=== PATIENT | female | born 1965 | race Caucasian/White ===

== ENCOUNTER 2016-10-01 15:40 | Inpatient (IN) ==
[2016-10-01] MEDS ORDERED: ONDANSETRON 4 MG/2 ML VIAL IV STA (15:45)
[2016-10-01] MEDS ORDERED: HYDROmorphone 2 MG/1 ML VIAL IV STA ×2 (15:45→18:09)
[2016-10-01] MEDS ORDERED: SODIUM CHLORIDE 0.9% 1,000 ML IV STA (15:45)
--- NOTE | 2016-10-01 16:13 | Emergency Department Note ---
Stephanie Pimentel Gwan, am scribing for, and in the presence of, Salvador Grijalva MD 15:58 . Valentine Pimentel James D, MD, personally performed the services described in this documentation, ascribed by Vladimir Brown in my presence, and it is both accurate and complete 612 . Arrival - Arrival Chief Complaint: Abdominal / Flank Pain ED Nursing Triage Note: ABD PAIN ONSET AROUND 2 LAST NIGHT, TENDER OVER RLQ Mode of Arrival: Ambulatory Limitations: No Limitations Source: Patient, Old Records Reviewed, RN Notes Reviewed Time Seen by Provider: 10/01/16 15:45 - History of Present Illness HPI Narrative: Patient is a 51 y/o white female who presents to the ED with a c/o RLQ pain with an onset 0200 this morning. Patient stated that she cooked some shrimp 3 days ago and that she ate them last night. She continued to note that she was awaken this morning at 0200 with nausea and diarrhea. Patient then said that her pain has worsened prompting her visit to the ED for further evaluation. She denies any dysuria or fever. Onset (ago): day(s) Consistency: constant Severity: moderate Allergies/Adverse Reactions: Allergies Allergy/AdvReac Type Severity Reaction Status Date / Time No Known Allergies Allergy Unverified 10/01/16 15:48 Home Medications: Home Medications Medication Instructions Recorded Confirmed Type Eszopiclone [Lunesta] 3 mg PO BEDTIME 10/01/16 10/01/16 History Magnesium 250 mg PO DAILY 10/01/16 10/01/16 History Multivitamin (Centrum) [Centrum 1 tablet PO DAILY 10/01/16 10/01/16 History Tab] [place]-3 Fatty Acids [Fish Oil] 300 mg PO TID 10/01/16 10/01/16 History Ubidecarenone [Co Q-10] 50 mg PO DAILY 10/01/16 10/01/16 History Zolpidem [Ambien] 5 mg PO BEDTIME 10/01/16 10/01/16 History buPROPion XL [Wellbutrin Xl] 300 mg PO DAILY 10/01/16 10/01/16 History HYDROcodone/ACETAMIN 7.5-325 1 tablet PO Q4H PRN #30 tablet 10/02/16 Rx [[place] 7.5-325] Review of System - Review of System 12 point system: reviewed and no additional remarkable complaints except as stated - Review of System Constitutional: Absent: chills, diaphoresis, fever Eyes: Absent: pain Head/Ears/Nose/Throat: Absent: earache Respiratory: Absent: cough, wheezing Cardiovascular: Absent: chest pain Gastrointestinal: Present: as per HPI, abdominal pain, nausea, diarrhea. Absent : vomiting Genitourinary female: Absent: dysuria Musculoskeletal: Absent: arm pain, back pain, leg pain, neck pain Skin: Absent: rash Neurological: Absent: headache, weakness Medical,Surgical,& Family Hx - Medical History Psychological: History of: Anxiety Disorders Exam Physical Examination: GENERAL: This is a white female in no apparent distress. VITAL SIGNS: HEENT: Head is normocephalic and atraumatic. Pupils are equally round and reactive to light. Extraocular movement are intact. Oropharynx is benign with moist mucous membranes. NECK: Neck is soft and supple without tenderness. There are no masses. There is no lymphadenopathy. LUNGS: Lungs are clear to auscultation bilaterally. Chest rises symmetrically. There is no chest wall tenderness. CV: Heart is regular rate and rhythm without murmurs, rubs, or gallops. ABDOMEN: Abdomen is soft, tender to palpation the right lower quadrant with minimal guarding. There are no abnormal masses palpated. There is no organomegaly. Bowel sounds are present and active. Heel tap positive, psoas sign positive. SKIN: Skin is warm and dry. No rash. EXTREMITIES: Patient has full range of motion without tenderness. There is no pedal edema. NEUROLOGIC: Awake, alert, and oriented x4. Cranial nerves II through XII are grossly intact. There are no motorsensory deficits. PSYCHIATRIC: Normal affect. Normal mood. Vital Signs: Vital Signs Temperature 98.1 F 10/02/16 11:40 Pulse Rate 69 10/02/16 11:40 Respiratory Rate 16 10/02/16 11:40 Blood Pressure 120/74 10/02/16 11:40 O2 Sat by Pulse Oximetry 99 10/02/16 11:40 Course - Consultations Consultation #1: Discussed with Dr. Mccracken. Patient will be admitted to his service. Time: 16:51 Results - Labs CBC & BMP: 10/01/16 15:45 10/01/16 16:05 Lab Results: I have reviewed the patients labs Labs: Laboratory Tests 10/01/16 15:45 WBC 12.9 H RBC 3.73 L Hgb 13.1 Hct 37.7 MCH 35 H Plt Count 329 Neut % (Auto) 77.6 H Lymph % (Auto) 9.5 L Neut # (Auto) 10.0 H Lymph # (Auto) 1.2 L Tyrrell # (Auto) 1.3 H - Diagnostic Findings Procedure: Abdominal x-ray: image reviewed by me (Nonspecific gas pattern, no free air, gas in the rectum.), CT Abdomen and Pelvis: image reviewed by me ( Distended appendix with appendicolith consistent with acute appendicitis.) Disposition Clinical Impression: Right lower quadrant abdominal pain, Acute appendicitis Case discussed with: patient Disposition: Still a Patient Condition: Stable New Prescriptions: Rx's Medication Instructions Recorded HYDROcodone/ACETAMIN 7.5-325 1 tablet PO Q4H PRN #30 tablet 10/02/16 [[place] 7.5-325]
[2016-10-01 16:20] LABS: Basophils % 0.3 % (0.0-0.8); Eosinophils # 0.3 10*3/uL (0.0-0.87); Eosinophils % 2.1 % (0.00-10.9); Hematocrit 37.7 VOL% (35.7-47.0); Hemoglobin 13.1 GM/DL (12.0-16.0); Immature Granulocytes % 0.2 %; Immature Granulocytes Absolute 0.03 #; Lymphocytes # 1.2 10*3/uL (1.4-4.0); Lymphocytes % 9.5 % (21.3-54.2); Mean Corpuscular HGB Conc 34.7 GM/DL (32-36); Mean Corpuscular Hemoglobin 35 PG (27-34); Mean Corpuscular Volume 101.1 FL (87-102); Mean Platelet Volume 9.7 FL (9.6-12.0); Monocytes # 1.3 10*3/uL (0.11-0.8); Monocytes % 10.3 % (1.7-12.7); Neutrophils % 77.6 % (38.7-73.9); Platelet Count 329 T/CUMM (130-400); Red Blood Count 3.73 MC/CUMM (3.8-5.5); Red Cell Distribution Width 12.1 % (9.3-17.3); White Blood Count 12.9 T/CUMM (4-12)
[2016-10-01] MEDS ORDERED: ONDANSETRON 4 MG/2 ML VIAL ONE ×2 (16:28→20:00)
[2016-10-01] MEDS ORDERED: HYDROmorphone 2 MG/1 ML VIAL ONE (16:28)
[2016-10-01 16:52] LABS: Alanine Aminotransferase 37 U/L (13-56); Albumin 3.7 G/DL (3.4-5.0); Alkaline Phosphatase 57 U/L (45-117); Aspartate Amino Transferase 24 U/L (0-37); Bilirubin,Total < 0.39 MG/DL (0.2-1.0); Blood Urea Nitrogen 11 MG/DL (7-18); Calcium 8.4 MG/DL (8.5-10.1); Glucose 103 MG/DL (74-106); Osmolality,Calculated 279.3 MOS/KG (273-304); Potassium 3.8 MMOL/L (3.5-5.1); Sodium 141 MMOL/L (136-145)
--- NOTE | 2016-10-01 16:53 | CT Report ---
Exam: CT abdomen pelvis w con Date: 10/01/2016 3:46 PM Comparison: None Indication: Abdominal pelvic pain Total DLP: 335.0 mGy*cm Technical: No oral contrast administered. Images were obtained from the lung bases to the iliac crest continuation through the pelvis with 100 cc of Omnipaque 350 with axial sagittal coronal imaging available for review. Dose reduction was performed with decreasing kv and mA and automated exposure Findings: Lung bases: No obvious infiltrates or effusions present. Liver and Spleen: Liver hepatic and portal veins unremarkable for acute findings. The spleen is normal in size. Gallbladder and Pancreas: Unremarkable Adrenals: Unremarkable Kidneys: Both kidneys are equally perfused and demonstrate no evidence for obstructive uropathy. The ureters are demonstrated to the bladder bilaterally without obstruction Stomach: Incomplete distended with air fluid and debris Retroperitoneum: No enlarged lymph nodes. Aorta and IVC: No obvious aneurysm aorta vessels and IVC are unremarkable. Bowel and Mesentery: Some fluid-filled loops of small bowel are present. No obvious evidence of pneumoperitoneum clearly demonstrated. Some small calcifications are present in the right lower quadrant . Question appendicolith. Dilated distended appendix also present with at least 2 calcifications suspected in the appendix. Pelvis: Bladder: Incompletely distended with fluid on the delayed images. Fluid: No free fluid identified. Lymph nodes: No enlarged lymph nodes. Pelvic organs: Mildly prominent the uterus that suggest possibly some degenerative leiomyoma changes present. Osseous structures: Degenerative changes thoracolumbar spine. Impression: 1. Calcification right lower quadrant appendicolith cannot be excluded. The appendix appears to measure up to approximate 7.4 mm on the coronal imaging measures 9.2 cm on the axial image and suggest probably a component of appendicitis with calcifications proximally and distally in the appendix. No obvious defined abscess pneumoperitoneum present. 2. Dilated reactive small bowel present. 3. Mildly enlarged uterus with some degenerative leiomyoma changes. Critical test report called to Dr. Tyrell Grijalva. PROCEDURE INTERPRETED AT [facility] DEPARTMENT OF RADIOLOGY Final Report Signed by: Dr. Waylon Shah
--- NOTE | 2016-10-01 16:56 | XRay Report ---
Exam: XR abdomen complete w decub Date: 10/01/2016 3:53 PM Indication: Right lower quadrant pain Comparison: CT scan 10/01/2016 Technical: Supine and erect imaging 3 views. The exam reveals performed post CT imaging. Findings: The lung bases unremarkable. The liver shadow and spleen shadow and renal shadows are unremarkable. Nonspecific GI pattern is present with some dilated loops of bowel present. No obvious pneumoperitoneum. The ureters are demonstrated to the bladder. Faint calcifications right lower quadrant. Impression: 1. Mild reactive bowel present. 2. CT scan suggested appendicoliths and acute appendicitis PROCEDURE INTERPRETED AT [facility] DEPARTMENT OF RADIOLOGY Final Report Signed by: Dr. Waylon Shah
[2016-10-01] MEDS ORDERED: AMPICILLIN/SULBACTAM 3,000 MG VIAL ONE (18:14)
[2016-10-01] MEDS ORDERED: diphenhydrAMINE 50 MG/1 ML VIAL ONE (18:47)
[2016-10-01] MEDS ORDERED: diphenhydrAMINE 50 MG/1 ML VIAL IV STA (18:58)
[2016-10-01] MEDS: AMPICILLIN/SULBACTAM 3,000 MG in SODIUM CHLORIDE 0.9% 100 ML IV SCH (19:00)
--- NOTE | 2016-10-01 19:14 | General Surg History&Physical ---
Assessment and Plan (1) Right lower quadrant abdominal pain Status: Acute Assessment and plan: Impression: Acute appendicitis Plan: I have reviewed the CT report and images. History laboratory work exam and CT scan all consistent with acute appendicitis. Discussed options with the patient and she would like to proceed with laparoscopic appendectomy as soon as possible. We discussed the risks of the procedure including bleeding, infection , damage to surrounding structures, need for further surgery, leaking at the staple line, scar formation, conversion to an open procedure in detail. She would like to proceed tonight. Current Visit: Yes History of Present Illness Chief complaint: Abdominal pain History of present illness: Ms. Cisneros is a 51 year old female presents to the emergency room with abdominal pain that began at 2 AM this morning. It of progressively worsened throughout the day. Initially started in the suprapubic region and has migrated to the right lower quadrant. She has had diarrhea and nausea. She denies fever. She has no chest pain shortness of breath, heart or lung problems. She denies any medical problems other than a previously diagnosed ovarian cyst when she was . Home Medications Medication Instructions Recorded Confirmed Type Eszopiclone [Lunesta] 3 mg PO BEDTIME 10/01/16 10/01/16 History Magnesium 250 mg PO DAILY 10/01/16 10/01/16 History Multivitamin (Centrum) [Centrum 1 tablet PO DAILY 10/01/16 10/01/16 History Tab] [place]-3 Fatty Acids [Fish Oil] 300 mg PO TID 10/01/16 10/01/16 History Ubidecarenone [Co Q-10] 50 mg PO DAILY 10/01/16 10/01/16 History Zolpidem [Ambien] 5 mg PO BEDTIME 10/01/16 10/01/16 History buPROPion XL [Wellbutrin Xl] 300 mg PO DAILY 10/01/16 10/01/16 History Allergies Allergy/AdvReac Type Severity Reaction Status Date / Time No Known Allergies Allergy Unverified 10/01/16 15:48 Medical,Surgical,& Family Hx - Medical History Medical History: noncontributory Psychological: History of: Anxiety Disorders Exam - Constitutional Vitals: Period Temp Pulse Resp BP Sys/Love Pulse Ox Last 24 Hr 98.3 F-98.3 F 84-84 18-18 127-127/87-87 100 General appearance: no acute distress - Head Head exam: Present: normocephalic - Neck Neck exam: Present: normal inspection - Respiratory Respiratory exam: Present: clear to auscultation bilaterally - Cardiovascular Cardiovascular exam: Present: RRR - GI/Abdominal GI/Abdominal exam: Present: soft (Tender to palpation in the right lower quadrant with localized rebound. Positive psoas sign.) - Extremities Exam Extremities exam: Present: normal inspection - Back Exam Back exam: Present: normal inspection - Neurological Exam Neurological exam: Present: alert, oriented X3 Speech: Present: normal - Skin Skin exam: Present: normal color 12 point system: reviewed and no additional remarkable complaints except as stated Results - Labs CBC & BMP: 10/01/16 15:45 10/01/16 16:05 Lab Results: I have reviewed the past 24 hour labs
[2016-10-01] MEDS ORDERED: BUPIVACAINE MPF 0.25% /EPI 30 ML VIAL ONE (19:45)
[2016-10-01] MEDS ORDERED: NEOSTIGMINE 10 MG/10 ML VIAL ONE (20:00)
[2016-10-01] MEDS ORDERED: ROCURONIUM 100 MG/10 ML VIAL IV ONE (20:00)
[2016-10-01] MEDS ORDERED: KETOROLAC 30 MG/1 ML VIAL ONE (20:00)
[2016-10-01] MEDS ORDERED: LIDOCAINE 2% 5 ML VIAL ONE (20:00)
[2016-10-01] MEDS ORDERED: PHENYLEPHRINE 1 MG/10 ML SYRINGE IV ONE (20:00)
[2016-10-01] MEDS ORDERED: PROPOFOL 200 MG/20 ML VIAL IV ONE (20:00)
[2016-10-01] MEDS: LACTATED RINGERS 1,000 ML IV SCH ×4 (20:00→23:58)
[2016-10-01] MEDS ORDERED: GLYCOPYRROLATE 0.4 MG/2 ML VIAL ONE (20:00)
--- NOTE | 2016-10-01 20:54 | Operative Note ---
Date of procedure: 10/01/16 Pre-op diagnosis: Acute appendicitis Post-op diagnosis: same Procedure: Procedure performed: Laparoscopic appendectomy Procedure in detail: After informed consent was obtained, patient was taken operating suite lies upon the operating table. After general anesthesia was induced abdomen was prepped and draped in usual sterile fashion after a Hernandez was placed. After procedural pause local anesthetic infiltrated in the skin and subcutaneous tissue above the umbilicus. Incision was made and dissection carried down through skin and soft tissue. The fascia was grasped with Vu's and elevated. Fascial incision was made. Abdominal cavity was entered bluntly. Finger sweep revealed no adhesions. Brito trocar placed under visualization. Pneumoperitoneum achieved. The camera inserted bowel mesentery inspected found to be free of any violation. Patient placed in Trendelenburg position rotated to the left. 5 mm suprapubic left lower quadrant trochars were placed under visualization. Can remove to the left lower quadrant. In the right lower quadrant there were some adhesions to the descending colon but the cecum appeared relatively free of disease. The appendix was identified and it appeared to be consistent with suppurative appendicitis. The appendix was grasped and elevated. Window was created at the appendiceal base in the mesentery. The appendiceal base was relatively free of the inflammatory process. The appendiceal base was transected using a DEXTER stapling device with vascular load. Mesoappendix transected in the same fashion. The appendix was placed in an Endo Catch sac and removed to the Brito trocar site. Pneumoperitoneum achieved in the right lower quadrant thoroughly irrigated and suctioned. The irrigant remained clear. It was all suctioned. There is good hemostasis. The staple lines inspected and found to be intact no leakage of sanguinous or succus-appearing fluid. Abdomen was desufflated as the trochars were removed under visualization. Fascia at the Brito trocar site closed using 0 Vicryl [id number] interrupted suture. Wounds thoroughly irrigated and suctioned. Deep dermal layer closed with 3-0 Vicryl. 4-0 Monocryl used to close the skin. Sterile dressings applied. Patient was extubated and taken recovery room in stable condition. All lap and needle counts correct at the end of the case. Anesthesia: GETA Surgeon / Physician: Bao Mccracken Estimated blood loss: other (Less than 10 cc) Specimens: other (Appendix) Condition: stable Disposition: PACU Results - Labs CBC & BMP: 10/01/16 15:45 10/01/16 16:05 Discharge Plan - Discharge Medications No Action buPROPion XL [Wellbutrin Xl] 300 mg PO DAILY Zolpidem [Ambien] 5 mg PO BEDTIME Eszopiclone [Lunesta] 3 mg PO BEDTIME Ubidecarenone [Co Q-10] 50 mg PO DAILY Magnesium 250 mg PO DAILY Multivitamin (Centrum) [Centrum Tab] 1 tablet PO DAILY [place]-3 Fatty Acids [Fish Oil] 300 mg PO TID - Follow Up or Referral - Forms/Instructions
[2016-10-01] MEDS ORDERED: ePHEDrine 50 MG/ML AMP ONE (21:06)
--- NOTE | 2016-10-01 21:22 | Anesthesia Post-Op ---
Anesthesia Post OP - Post Ansesthetic Evaluation Patient seen in post op: Yes Resp: within normal limits CV: within normal limits Mental: within normal limits Temp: within normal limits [id number]: within normal limits Nausea and Vomiting: within normal limits Pain: within normal limits
[2016-10-01] MEDS ORDERED: LACTATED RINGERS 2,000 ML IV ONE (21:32)
[2016-10-01] MEDS ORDERED: SEVOFLURANE 1 UNIT/15 MINUTE INH ONE (21:32)
[2016-10-01] MEDS ORDERED: fentaNYL 100 MCG/2 ML VIAL ONE (21:32)
[2016-10-01] MEDS ORDERED: MIDAZOLAM 2 MG/2 ML VIAL ONE (21:32)
[2016-10-01] MEDS ORDERED: ACETAMINOPHEN 1,000 MG/100 ML VIAL IV ONE (21:32)
[2016-10-01] MEDS ORDERED: ONDANSETRON 4 MG/2 ML VIAL IV PRN (21:54)
[2016-10-01] MEDS ORDERED: ACETAMINOPHEN 325 MG TABLET PO PRN (21:54)
[2016-10-01] MEDS ORDERED: HYDROmorphone 2 MG/1 ML VIAL IV PRN (21:54)
[2016-10-02] MEDS: AMPICILLIN/SULBACTAM 3,000 MG in SODIUM CHLORIDE 0.9% 100 ML IV SCH ×2 (02:43→12:26)
[2016-10-02] MEDS: LACTATED RINGERS 1,000 ML IV SCH ×2 (07:35→13:45)
[2016-10-02] MEDS ORDERED: PANTOPRAZOLE 40 MG TABLET PO SCH (09:00)
[2016-10-02 11:41] VITALS: BP 120/74
--- NOTE | 2016-10-02 12:55 | Discharge Summary ---
Hospital Course - Hospital Course Hospital Course: Patient is a 51-year-old female who presents to the emergency department with acute appendicitis underwent lap scopic appendectomy where suppurative appendicitis was identified. Postoperatively she received IV antibiotics and an uneventful postoperative course. The time of discharge, she was tolerating oral intake, passing flatus, voiding and tolerating activity without difficulty. She was discharged home in good condition with appropriate analgesics. Follow with Dr. Mccracken in 2 weeks. Educational restrictions was provided Diagnosis - Discharge Diagnosis (1) Acute appendicitis Status: Acute Specialty Discharge - Follow Up or Referrals Follow up with: Bao Mccracken MD [Physician] - 10/16/16 9:45 am Discharge Plan - Discharge Data Disposition: Disch To Home/Self Care Condition at Discharge: Stable Discharge Diet: advance to your usual diet Activity: no lifting (> 10 lb), other (No aerobic activity or exercise until seen by physician in approximately 2 weeks.) Hygiene: may shower (Starting Thursday10/03/2016. ) Driving: other (No drivign while taking narcotics.) Contact your physician if you experience:: fever over 101, Difficulty voiding, Redness or swelling, Nausea/Vomiting, Shortness of breath, Bleeding, pain uncontrolled by pain medications Wound / Dressing Care Instructions: Keep surgical incisions clean and dry. Do not soak or submerge wounds. - Discharge Medications New HYDROcodone/ACETAMIN 7.5-325 [[place] 7.5-325] 1 tablet PO Q4H PRN #30 tablet PRN Reason: Pain Moderate To Severe (4-10) Continue buPROPion XL [Wellbutrin Xl] 300 mg PO DAILY Zolpidem [Ambien] 5 mg PO BEDTIME Eszopiclone [Lunesta] 3 mg PO BEDTIME Ubidecarenone [Co Q-10] 50 mg PO DAILY Magnesium 250 mg PO DAILY Multivitamin (Centrum) [Centrum Tab] 1 tablet PO DAILY [place]-3 Fatty Acids [Fish Oil] 300 mg PO TID - Follow Up or Referral Follow Up: Bao Mccracken MD [Physician] - 10/16/16 9:45 am - Forms/Instructions Instructions: Hydrocodone/Acetaminophen (By mouth), Laparoscopic Appendectomy ( DC) Exam - Constitutional Vitals: Period Temp Pulse Resp BP Sys/Love Pulse Ox Last 24 Hr 97 F-98.5 F 69-95 16-20 95-138/48-87 96-100 General appearance: no acute distress - Head Head exam: Present: normal inspection, normocephalic - Eye Eye exam: Absent: conjunctival injection, scleral icterus - Respiratory Respiratory exam: Present: clear to auscultation bilaterally - Cardiovascular Cardiovascular exam: Present: regular rate and rhythm - GI/Abdominal GI/Abdominal exam: Present: normal bowel sounds, soft, other (Surgical dressings are clean, dry and intact. Abdomen is nondistended with normal bowel sounds. Appropriate postoperative tenderness remains.) - Extremities Exam Extremities exam: Absent: calf tenderness, edema - Neurological Exam Neurological exam: Present: alert, oriented X3 - Psychiatric Psychiatric exam: Present: normal affect, normal mood - Skin Skin exam: Present: normal color, warm Discharge Results Procedures and tests throughout hospitalization: U laparoscopic appendectomy; pathology pending at the time of discharge Labs on day of discharge: Labs from last 24 hours 10/01/16 10/01/16 10/01/16 16:29 16:05 15:45 WBC 12.9 H RBC 3.73 L Hgb 13.1 Hct 37.7 MCV 101.1 MCH 35 H MCHC 34.7 RDW 12.1 Plt Count 329 MPV 9.7 Neut % (Auto) 77.6 H Lymph % (Auto) 9.5 L Hinds % (Auto) 10.3 Eos % (Auto) 2.1 Baso % (Auto) 0.3 Neut # (Auto) 10.0 H Lymph # (Auto) 1.2 L Hinds # (Auto) 1.3 H Eos # (Auto) 0.3 Baso # (Auto) 0.0 Immature Gran % 0.2 Nucleated RBC % 0.0 Immature Gran # 0.03 Nucleated RBCs # 0.00 Sodium 141 Potassium 3.8 Chloride 107 Carbon Dioxide 26 Anion Gap 11.8 BUN 11 Creatinine 0.70 POC Creatinine 0.77 GFR Calculation 87 POC Estimated GFR (eGFR) > 60 BUN/Creatinine Ratio 15.00 Glucose 103 Calculated Osmolality 279.3 Calcium 8.4 L Total Bilirubin < 0.39 AST 24 ALT 37 Alkaline Phosphatase 57 Total Protein 6.0 L Albumin 3.7 Globulin 2.3 Albumin/Globulin Ratio 1.6 Lipase 153.0 - Imaging and Cardiology Procedure: Abdominal x-ray: image reviewed by me, report reviewed by me, CT Abdomen and Pelvis: image reviewed by me, report reviewed by me DS: Provider Date of admission: 10/01/16 16:51 Primary care physician: . No PCP Attending physician on admission: Bao Mccracken MD Consults: None Discharging clinician: Kaleigh Hollis PA-C
--- NOTE | 2016-10-03 11:17 | Pathology Report from [facility] ---
[facility] [place] : [id number] PATIENT NAME : Migue Cisneros ORDERING DR : Bao Mccracken MD CLINICAL HX: RLQ abdominal pain POST-OP DX: Same SPECIMEN INFO: Appendix GROSS DESCRIPTION: Received in formalin labeled MIGUE CISNEROS is an appendix measuring 7.5 x 0.8 cm. The serosa is helm with exudate noted. The lumen is somewhat dilated and filled with soft fecal material with a 0.6 x 0.5 cm fecalith noted near the proximal end of the appendix. No perforations are seen. Inspector Final Assembly Conveyor Line sections are submitted in one cassette. DIAGNOSIS FOR MIGUE CISNEROS: APPENDIX: Acute suppurative appendicitis. COLLECTED DATE: 10/02/2016 [facility] [place] DATE: 10/03/2016 ELECTRONICALLY SIGNED BY: Esteban Garcia III, M.D. 10/03/2016 - 9:43:04 [facility] INSANEKaylie
== END 2016-10-02 14:40 | disposition home or self-care (01) | DRG 343 ==
LOC: N.ED 15:40 → N.EDINP 16:51 → N.3E 19:55
PROVIDERS: ADMIT Surgery; ATTEND Surgery